=== PATIENT | female | born 2005 | race African-American/Black ===

== ENCOUNTER 2025-08-22 09:32 | Emergency (ER) | payer OTHER ==
[~2025-08-22] VITALS: Ht 162.6 cm; Wt 68.2 kg
[2025-08-22] MEDS ORDERED: bcp (10:07)
[2025-08-22] MEDS ORDERED: VITAD400CA PO (10:07)
[2025-08-22] MEDS ORDERED: FERR325T3 PO (10:07)
[2025-08-22] MEDS ORDERED: ZITHTAB PO (12:12)
[2025-08-22 12:24] VITALS: BP 122/70; TEMP 98.3; O2SAT 100
== END 2025-08-22 12:26 | disposition home or self-care (01) ==
LOC: M ED 09:32
DX: B34.9 Viral infection, unspecified (principal); Z79.2 Long term (current) use of antibiotics; Z79.899 Other long term (current) drug therapy; Z88.0 Allergy status to penicillin